=== PATIENT | female | born 1955 | race Caucasian/White ===

== ENCOUNTER 2024-05-16 10:20 | Outpatient (CLI) | payer BC | END 2024-05-16 10:21 | disposition home or self-care (01) | LOC: BICRAD 10:20 | PROVIDERS: ATTEND Internal Medicine Rheumatology | DX: L40.59 Other psoriatic arthropathy (principal); M25.541 Pain in joints of right hand; M25.571 Pain in right ankle and joints of right foot; M25.542 Pain in joints of left hand; M81.0 Age-related osteoporosis without current pathological fracture; R76.12 Nonspecific reaction to cell mediated immunity measurement of gamma interferon antigen response without active tuberculosis; M19.071 Primary osteoarthritis, right ankle and foot; M15.1 Heberden's nodes (with arthropathy) | CPT/HCPCS: 71046 ==